=== PATIENT | female | born 1995 | race Caucasian/White ===

== ENCOUNTER 2017-09-05 23:03 | Emergency (ER) | payer BC ==
[~2017-09-05] VITALS: Ht 172.7 cm; Wt 63.8 kg
[2017-09-05 23:05] VITALS: TEMP 36.4; Ht 172.7 cm; Wt 63.8 kg
[2017-09-06] MEDS ORDERED: LIDOCAINE HCL 2% VISC SOLN 20 ML UDC PO STA (00:11)
[2017-09-06] MEDS ORDERED: ALUMINUM/MAGNESIUM SUSP 30 ML UDC PO STA (00:11)
[2017-09-06] MEDS ORDERED: BCPILLS PO (00:16)
--- NOTE | 2017-09-06 00:38 | EMERGENCY ROOM VISIT NOTE ---
History Report prepared by Crystal: Germaine Healy Under the Supervision of: Dr. Kimberly Johnson D.O. First contact with patient: 23:37 Chief Complaint: CONGESTION Stated Complaint: CHEST TIGHTNESS,CONGESTION,TIGHTNESS IN STOMACH Nursing Triage Summary: pt c/o "congestion" x1 week. states "it was up in my head." reports abdominal discomfort radiating into chest that began last night. denies PMH. pt alert and oriented x4, breathing regularly and independently. no cough noted at this time. History of Present Illness The patient is a 22 year old female who presents to the Emergency Room with complaints of persistent epigastric pain that began yesterday, noting it kept her awake during the night. The patient states that yesterday she had a light breakfast and did not eat again until night time, noting she spent the day drinking alcohol with her friends. She describes her epigastric pain as "knots in her stomach". She describes that the discomfort has gone up and her chest and she is now experiencing some shortness of breath. The patient denies any cough. Denies any fevers. The patient reports that for the past week she has been experiencing a sore throat, nausea, and chest congestion. She notes that she currently takes control pills. The patient denies any recent long car or airplane rides. She denies being a smoker. The patient has no previous medical history. Source of History: patient Onset: yesterday Position: other (global) Quality: other (epigastric pain) Timing: other (persistent) Associated Symptoms: + sorethroat, + nausea Note: Associated symptoms include: sore throat. Review of Systems See HPI for pertinent positives & negatives. A total of 10 systems reviewed and were otherwise negative. Past Medical & Surgical Medical Problems: (1) No Known Active Medical Problems Family History Cancer Diabetes mellitus Heart disease Hypertension Social History Smoking Status: Never Smoker Smokeless Tobacco Use: Unknown Alcohol Use: occasionally Drug Use: none Marital Status: single Housing Status: lives with roommate Occupation Status: [employer] student Current/Historical Medications Scheduled Control Pills ( Control Pills), 1 TAB PO DAILY Allergies Coded Allergies: No Known Allergies (Unverified , 09/06/17) Physical Exam Vital Signs Date Time Temp Pulse Resp B/P (MAP) Pulse Ox O2 Delivery O2 Flow Rate FiO2 2/9/18 05:08 71 18 103/57 97 Room Air 09/06/17 04:38 73 09/06/17 04:08 80 16 130/69 97 Room Air 09/06/17 03:03 77 18 108/63 98 Room Air 09/06/17 02:03 103 18 115/92 98 Room Air 09/06/17 00:26 76 18 104/61 97 Room Air 09/06/17 00:12 85 09/05/17 23:47 Room Air 09/05/17 23:05 36.4 98 16 132/100 97 Room Air Physical Exam HEENT: Head - normocephalic and atraumatic Pupils are equal, round, and reactive to light. Extraocular eye muscles are intact, and sclera are anicteric. Nose - moist nasal mucosa without discharge. Mouth - moist buccal mucosa. Oropharynx is nonerythematous and there is no tonsillar exudate or edema noted. Neck: Supple; no JVD, nuchal rigidity, cervical lymphadenopathy. Heart: Regular rate and rhythm. There is a normal S1 and S2 with no murmurs, clicks, or gallops appreciated. Lungs: Clear to auscultation bilaterally with no wheezes, rales, or rhonchi. Abdomen: Soft, completely nontender, nondistended, with good bowel sounds. There are no palpable pulsatile masses or hepatosplenomegaly. There is no guarding, rigidity, or rebound noted. Extremities: No evidence of cyanosis, clubbing, or edema. There are easily palpable peripheral pulses. Skin: warm and dry with good turgor and no rashes. Medical Decision & Procedures ER Provider Diagnostic Interpretation: CTA CHEST results as stated below per my review: No evidence of pulmonary embolus. Lungs are clear. No pleural effusion or pneumothorax. Heart and pericardium unremarkable. Partially visualized abdomen is unremarkable. No acute osseous abnormality. Laboratory Results 09/06/17 00:21 Red Blood Count 4.79, Mean Corpuscular Volume 92.3, Mean Corpuscular Hemoglobin 33.2, Mean Corpuscular Hemoglobin Concent 36.0, Mean Platelet Volume 10.9, Neutrophils (%) (Auto) 69.0, Lymphocytes (%) (Auto) 23.5, Monocytes (%) (Auto) 5.6, Eosinophils (%) (Auto) 1.5, Basophils (%) (Auto) 0.2, Neutrophils # (Auto) 8.70, Lymphocytes # (Auto) 2.97, Monocytes # (Auto) 0.71, Eosinophils # (Auto) 0.19, Basophils # (Auto) 0.03 09/06/17 00:21 Test 09/06/17 00:21 White Blood Count 12.63 K/uL (4.8-10.8) Red Blood Count 4.79 M/uL (4.2-5.4) Hemoglobin 15.9 g/dL (12.0-16.0) Hematocrit 44.2 % (37-47) Mean Corpuscular Volume 92.3 fL (80-100) Mean Corpuscular Hemoglobin 33.2 pg (25-34) Mean Corpuscular Hemoglobin Concent 36.0 g/dl (32-36) Platelet Count 381 K/uL (130-400) Mean Platelet Volume 10.9 fL (7.4-10.4) Neutrophils (%) (Auto) 69.0 % Lymphocytes (%) (Auto) 23.5 % Monocytes (%) (Auto) 5.6 % Eosinophils (%) (Auto) 1.5 % Basophils (%) (Auto) 0.2 % Neutrophils # (Auto) 8.70 K/uL (1.4-6.5) Lymphocytes # (Auto) 2.97 K/uL (1.2-3.4) Monocytes # (Auto) 0.71 K/uL (0.11-0.59) Eosinophils # (Auto) 0.19 K/uL (0-0.5) Basophils # (Auto) 0.03 K/uL (0-0.2) RDW Standard Deviation 40.5 fL (36.4-46.3) RDW Coefficient of Variation 12.0 % (11.5-14.5) Immature Granulocyte % (Auto) 0.2 % Immature Granulocyte # (Auto) 0.03 K/uL (0.00-0.02) D-Dimer 810 ug/L FEU (0-500) Anion Gap 6.0 mmol/L (3-11) Est Creatinine Clear Calc Drug Dose 86.1 ml/min Estimated GFR () 88.5 Estimated GFR (Non- 76.4 BUN/Creatinine Ratio 12.5 (10-20) Calcium Level 9.7 mg/dl (8.5-10.1) Total Bilirubin 0.3 mg/dl (0.2-1) Direct Bilirubin 0.1 mg/dl (0-0.2) Aspartate Amino Transf (AST/SGOT) 16 U/L (15-37) Alanine Aminotransferase (ALT/SGPT) 26 U/L (12-78) Alkaline Phosphatase 67 U/L (45-117) Troponin I < 0.015 ng/ml (0-0.045) Total Protein 9.0 gm/dl (6.4-8.2) Albumin 4.2 gm/dl (3.4-5.0) Lipase 126 U/L (73-393) Thyroid Stimulating Hormone (TSH) 3.610 uIu/ml (0.300-4.500) Laboratory results per my review. Medications Administered Medications (Trade) Dose Ordered Sig/Denise Route Start Time Stop Time Status Last Admin Dose Admin Lidocaine HCl (Viscous Lidocaine 2% Soln) 10 ml NOW STAT PO 09/06/17 00:11 09/06/17 00:14 DC 09/06/17 00:27 10 ML Al Hydroxide/Mg Hydroxide (Maalox Susp) 30 ml NOW STAT PO 09/06/17 00:11 09/06/17 00:14 DC 09/06/17 00:27 30 ML Famotidine (Pepcid 20mg Iv Push) 20 mg ONE STAT IV 09/06/17 01:30 09/06/17 01:31 DC 09/06/17 02:01 20 MG Ranitidine HCl 50 mg/Dextrose 102 ml @ 204 mls/hr NOW STAT IV 09/06/17 01:53 09/06/17 02:22 DC 09/06/17 02:03 204 MLS/HR Ondansetron HCl (Zofran Inj) 4 mg STK-MED ONCE .ROUTE 09/06/17 02:06 09/06/17 02:07 DC 09/06/17 02:08 4 MG Dicyclomine HCl (Bentyl Tab) 20 mg NOW STAT PO 09/06/17 03:40 09/06/17 03:41 DC 09/06/17 04:07 20 MG Procedure 0011: Ordered GI cocktail 0130: Ordered Famotidine 20mg IV 0206: Ordered Zofran Inj 4mg. 0340: Ordered Bentyl Tab 20mg PO. ECG Indication: other (chest tightness) Rate (beats per minute): 87 Rhythm: normal sinus Findings: no acute ischemic change, no ectopy ED Course 2356: Past medical records reviewed. The patient was evaluated in room A4. A twelve-lead EKG was obtained as described above. A complete history and physical exam was performed. Patients electrocardiogram was interpreted by me. 0011: Ordered a GI cocktail 0126: I reevaluated the patient, who feels her chest and epigastric discomfort has been relieved with the GI cocktail. 0130: Ordered Famotidine 20mg IV. The patient complained of some shortness of breath 0205: The patient began vomiting after IV. High D-dimer of 810. 0206: Ordered Zofran Inj 4mg. 0228: I reevaluated the patient, who was resting. I discussed some test findings and she verbalized complete understanding. She will go for CT scan of the chest to rule out PE. 0340: The patient continued to complain of some epigastric abdominal cramping. I Ordered Bentyl Tab 20mg PO. 0437: I reevaluated the patient and discussed more test findings. She verbalized complete understanding. She was comfortable at the time of my discussion. 0515: Upon reevaluation, the patient is feeling significantly better. I discussed findings and results with her. She verbalized agreement of the treatment plan. The patient was discharged home. Medical Decision The patient is a 22 year old female who presents to the ED with persistent epigastric pain. Differential diagnosis includes pancreatitis, ulcer disease, gastritis, PE, and pneumonia. The patient's laboratory results showed: white blood cell count of 12.6, stable H&H, normal renal function, normal glucose and LFT, and normal lipase. This is a 22-year-old female patient who presents to the emergency department with epigastric discomfort that radiates around her chest with some associated chest congestion and shortness of breath. The patient had elevated d-dimer. She went for CT scan of the chest to rule out PE. This was negative. The patient had moderate relief of her symptoms initially with a GI cocktail. She was then given IV Pepcid. The patient went on to complain of some crampy abdominal pain in the epigastrium. She had complete resolution of those symptoms with some Bentyl. I've asked the patient to rest and take a very bland diet over the next couple of days. She should take 5-6 small meals a day and avoid alcohol use for the time being. I've asked her to start taking Zantac daily at least for the next 3-5 days she was told to return to the emergency department if she had any worsening symptoms. Otherwise, she should follow-up with her PCP for recheck by Saturday. Medication Reconcilliation Current Medication List: was personally reviewed by me Impression Primary Impression: Epigastric pain Scribe Attestation The scribe's documentation has been prepared under my direction and personally reviewed by me in its entirety. I confirm that the note above accurately reflects all work, treatment, procedures, and medical decision making performed by me. Departure Information Dispostion Home / Self-Care Referrals [facility] (PCP) Forms HOME CARE DOCUMENTATION FORM, IMPORTANT VISIT INFORMATION Patient Instructions My [facility] Additional Instructions Rest Take a bland diet - multiple frequent small meals Take zantac - 150mg every 12 hours for next 3-5 days No alcohol over next 5 days Return to the ER if symptoms worsen
[2017-09-06 00:43] LABS: BASO % 0.2 %; BASO ABS # 0.03 K/uL (0-0.2); EOS % 1.5 %; EOS ABS # 0.19 K/uL (0-0.5); HEMATOCRIT 44.2 % (37-47); HEMOGLOBIN 15.9 g/dL (12.0-16.0); IG# 0.03 K/uL (0.00-0.02); LYMPH % 23.5 %; LYMPH ABS # 2.97 K/uL (1.2-3.4); MEAN CELL VOLUME 92.3 fL (80-100); MEAN CORPUSCULAR HEMOGLOBIN 33.2 pg (25-34); MEAN PLATELET VOLUME 10.9 fL (7.4-10.4); MONO % 5.6 %; MONO ABS # 0.71 K/uL (0.11-0.59); PLATELET COUNT 381 K/uL (130-400); RED CELL DISTRIBUTION WIDTH SD 40.5 fL (36.4-46.3); WHITE BLOOD COUNT 12.63 K/uL (4.8-10.8)
[2017-09-06 00:58] LABS: ALBUMIN 4.2 gm/dl (3.4-5.0); ALT/SGPT 26 U/L (12-78); AST/SGOT 16 U/L (15-37); BLOOD UREA NITROGEN 13 mg/dl (7-18); CALCIUM 9.7 mg/dl (8.5-10.1); CARBON DIOXIDE 28 mmol/L (21-32); CREATININE 1.05 mg/dl (0.60-1.20); GLUCOSE 94 mg/dl (70-99); LIPASE 126 U/L (73-393); POTASSIUM 3.6 mmol/L (3.5-5.1); SODIUM 135 mmol/L (136-145)
[2017-09-06 01:09] LABS: ALKALINE PHOSPHATASE 67 U/L (45-117)
[2017-09-06] MEDS ORDERED: RANITIDINE HCL 50 MG/100 ML D5W IV STA (01:30)
[2017-09-06] MEDS ORDERED: FAMOTIDINE 20MG/5ML IV PUSH IV STA (01:30)
[2017-09-06] MEDS ORDERED: RANITIDINE IV 50 MG in DEXTROSE 5% 100ML 100 ML IV STA (01:53)
[2017-09-06] MEDS ORDERED: ONDANSETRON INJ 2 MG/ML 2 ML VIAL ONE (02:06)
[2017-09-06] MEDS ORDERED: OPTIRAY 320 IV PRN (02:45)
[2017-09-06] MEDS ORDERED: DICYCLOMINE HCL 20 MG TAB PO STA (03:40)
[2017-09-06] MEDS ORDERED: DICYCLOMINE HCL 10 MG CAP ONE (04:05)
[2017-09-06 05:08] VITALS: BP 103/57; PULSE 71; O2SAT 97
--- NOTE | 2017-09-06 06:56 | DIAGNOSTIC IMAGING REPORT ---
(CHEST FOR PE) ANGIO WITH CT DOSE: 199.31 mGy.cm HISTORY: 22 years-old Female presents with acute atypical chest pain and chest tightness TECHNIQUE: Multiple CTA images of the chest were obtained after the intravenous administration of 72 ml Optiray 320. Coronal and sagittal MIPS were obtained from the axial data set and were submitted for review. A dose lowering technique was utilized adhering to the principles of ALARA. COMPARISON: Chest radiograph of same day. FINDINGS: CTA: There is adequate opacification of the pulmonary arteries to the level of the proximal segmental branches without convincing evidence of acute pulmonary embolism. The subsegmental branches are not well-seen secondary to contrast bolus timing and respiratory motion. The thoracic aorta is normal in course and caliber without aneurysm or dissection. The imaged great vessels appear patent. Heart size is normal. CT CHEST: No dominant thyroid nodule is seen. No pathologically adenopathy by CT size criteria. There is no pneumothorax, pleural effusion or focal airspace consolidation. The imaged upper abdominal structures are normal. The osseous structures appear intact. IMPRESSION: No acute intrathoracic abnormality identified, specifically no evidence of pulmonary thromboembolic disease. The above report was generated using voice recognition software. It may contain grammatical, syntax or spelling errors. Electronically signed by: Viktor Gaffney M.D. 09/06/2017 6:54 AM Dictated Date/Time: 09/06/2017 6:50 AM
--- NOTE | 2017-09-06 07:22 | DIAGNOSTIC IMAGING REPORT ---
SINGLE VIEW CHEST CLINICAL HISTORY: Chest tightness. FINDINGS: An AP, portable, upright chest radiograph is obtained. No prior studies are available for comparison at the time of dictation. The examination is degraded by portable technique and patient rotation. The cardiomediastinal silhouette is unremarkable. The lungs and pleural spaces are clear. No pneumothorax is seen. The bony thorax is grossly intact. IMPRESSION: No active disease in the chest. Electronically signed by: Samir Cormier M.D. 09/06/2017 7:21 AM Dictated Date/Time: 09/06/2017 7:20 AM
== END 2017-09-06 05:38 | disposition home or self-care (01) ==
LOC: C.EDB 23:05 → C.EDA 09-06 05:38
DX: R10.13 Epigastric pain (principal); Z83.3 Family history of diabetes mellitus; Z82.49 Family history of ischemic heart disease and other diseases of the circulatory system